=== PATIENT | female | born 1980 | race Caucasian/White ===

== ENCOUNTER → 2018-07-20 17:21 | Outpatient (CLI) | payer OTHER, SELFPAY ==
[2018-07-20 18:43] LABS: Cancer Antigen 125 12 U/mL (0-35)
== END ==
PROVIDERS: PCP Obstetrics & Gynecology; Visit Provider Obstetrics & Gynecology
DX: N83.299 Other ovarian cyst, unspecified side (principal)
CPT/HCPCS: 36415; 86304

== ENCOUNTER → 2019-05-24 09:09 | Outpatient (CLI) | payer OTHER, SELFPAY | PROVIDERS: PCP Obstetrics & Gynecology; Visit Provider Obstetrics & Gynecology | DX: N83.209 Unspecified ovarian cyst, unspecified side (principal) | CPT/HCPCS: 36415; 83001; 83002 ==